=== PATIENT | male | born 1955 | race Caucasian/White ===

== ENCOUNTER 2018-10-23 10:13 | Emergency (ER) | payer MEDICAID ==
[~2018-10-23] VITALS: Ht 172.7 cm; Wt 89.8 kg
[2018-10-23 14:10] VITALS: BP 162/98
== END 2018-10-23 14:10 | disposition home or self-care (01) ==
LOC: ED 10:13
DX: M25.561 Pain in right knee (principal); Z98.890 Other specified postprocedural states
CPT/HCPCS: J1885